=== PATIENT | female | born 2005 | race Hispanic/Latino ===

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

== ENCOUNTER 2024-06-17 00:42 | Emergency (ER) | payer BC ==
[2024-06-17] MEDS ORDERED: Lidocaine 1% w/Epinephrine 1:100K 20 ML VIAL ONE (01:06)
[2024-06-17] MEDS ORDERED: Bacitracin 1 PK ONE (01:06)
[2024-06-17] MEDS ORDERED: Lidocaine/Transparent Dressing 1 EACH KIT ONE (01:17)
== END 2024-06-17 01:45 | disposition home or self-care (01) ==
LOC: ERS 00:42
DX: S51.012A Laceration without foreign body of left elbow, initial encounter (principal); W25.XXXA Contact with sharp glass, initial encounter; Y93.89 Activity, other specified; Y92.008 Other place in unspecified non-institutional (private) residence as the place of occurrence of the external cause
CPT/HCPCS: 12002; 99283